=== PATIENT | female | born 1955 | race American Indian/Alaskan Native ===

== ENCOUNTER 2017-11-30 21:14 | Emergency (ER) | payer MEDICARE ==
[2017-11-30 23:44] VITALS: BP 150/76
== END 2017-12-01 01:44 | disposition left against medical advice (07) ==
LOC: ED 21:14
DX: T78.40XA Allergy, unspecified, initial encounter (principal); Z53.21 Procedure and treatment not carried out due to patient leaving prior to being seen by health care provider; X58.XXXA Exposure to other specified factors, initial encounter; Y93.89 Activity, other specified; Y99.8 Other external cause status; Y92.89 Other specified places as the place of occurrence of the external cause